=== PATIENT | male | born 1955 | race Caucasian/White ===

== ENCOUNTER 2017-01-18 10:39 | Outpatient (CLI) | payer OTHER | END 2017-01-18 23:59 | DX: R59.0 Localized enlarged lymph nodes (principal); K41.90 Unilateral femoral hernia, without obstruction or gangrene, not specified as recurrent ==

== ENCOUNTER 2017-01-23 10:40 | Outpatient (CLI) | payer OTHER | END 2017-01-23 10:41 | disposition home or self-care (01) | DX: R94.5 Abnormal results of liver function studies (principal) ==

== ENCOUNTER 2017-02-12 08:17 | Outpatient (CLI) | payer OTHER | END 2017-02-12 08:18 | disposition home or self-care (01) | DX: R19.03 Right lower quadrant abdominal swelling, mass and lump (principal) ==

== ENCOUNTER 2017-12-30 08:04 | Outpatient (CLI) | payer OTHER ==
[2017-12-30 13:00] LABS: BASOPHILS % (AUTO) 0.8 %; EOSINOPHILS # (AUTO) 0.2 10^3/uL (0.0-0.7); EOSINOPHILS % (AUTO) 5.5 %; HGB - HEMOGLOBIN 14.7 g/dL (14.0-18.0); LYMPHOCYTES # (AUTO) 1.2 10^3/uL (1.5-3.5); LYMPHOCYTES % (AUTO) 28.8 %; MEAN CORPUSCULAR HGB CONC 34.6 g/dL (32.0-36.0); MEAN CORPUSCULAR VOLUME 95.4 fL (80.0-94.0); MEAN PLATELET VOLUME 9.6 fL (7.4-11.4); MONOCYTES # (AUTO) 0.4 10^3/uL (0.0-1.0); NEUTROPHILS # (AUTO) 2.2 10^3/uL (1.5-6.6); NEUTROPHILS % (AUTO) 54.9 %; PLT - PLATELET COUNT 140 10^3/uL (130-450); RED BLOOD COUNT 4.44 10^6/uL (4.70-6.10); RED CELL DISTRIBUTION WIDTH 12.2 % (12.0-15.0); WHITE BLOOD COUNT 4.1 x10^3/uL (4.8-10.8)
[2017-12-30 13:18] LABS: ALBUMIN 4.3 g/dL (3.2-5.5); ALBUMIN/GLOBULIN RATIO 1.3 (1.0-2.2); ALKALINE PHOSPHATASE 58 IU/L (42-121); ALT ALANINE AMINOTRANSFERASE 71 IU/L (10-60); AST ASPARTATE AMINOTRANSFERASE 59 IU/L (10-42); BUN - BLOOD UREA NITROGEN 18 mg/dL (6-20); CALCIUM 9.2 mg/dL (8.5-10.3); CARBON DIOXIDE - CO2 25 mmol/L (21-32); CHLORIDE 101 mmol/L (101-111); CHOL/HDL RATIO 7.9 (<5.0); CHOLESTEROL 278 mg/dL; CREATININE 1.1 mg/dL (0.6-1.2); GFR - MDRD 68 (>89); GLUCOSE 131 mg/dL (70-100); HDL CHOLESTEROL 35 mg/dL; LDL CHOLESTEROL,CALCULATED 186 mg/dL; LDL/HDL RATIO 5.3 (<3.6); SODIUM 136 mmol/L (135-145); TOTAL PROTEIN 7.7 g/dL (6.7-8.2); VLDL CHOLESTEROL 57 mg/dL
== END 2017-12-30 08:05 | disposition home or self-care (01) ==
LOC: LAB.WCP 08:04
PROVIDERS: ATTEND Family Medicine
DX: Z00.00 Encounter for general adult medical examination without abnormal findings (principal); Z12.5 Encounter for screening for malignant neoplasm of prostate
CPT/HCPCS: 36415; 80053; 80061; 83721; 84153; 85025

== ENCOUNTER 2018-01-20 08:28 | Day surgery (SDC) | payer OTHER ==
[2018-01-20] MEDS ORDERED: LACTATED RINGERS 1,000 ML IV ONE (09:21)
[2018-01-20] MEDS ORDERED: PROPOFOL 200 MG/20 ML VIAL IVP ONE (10:00)
[2018-01-20] MEDS ORDERED: fentaNYL 100 MCG/2 ML VIAL IVP ONE (10:00)
[2018-01-20] MEDS ORDERED: MIDAZOLAM 2 MG/2 ML VIAL IVP ONE (10:00)
[2018-01-20 10:47] VITALS: BP 153/93
== END 2018-01-20 08:29 | disposition home or self-care (01) ==
LOC: SDS 08:28
PROVIDERS: ATTEND Surgery
PROC: 0DBN8ZX Excision of Sigmoid Colon, Via Natural or Artificial Opening Endoscopic, Diagnostic (ICD-10-PCS; 2018-01-20)
PROC: 0DBM8ZX Excision of Descending Colon, Via Natural or Artificial Opening Endoscopic, Diagnostic (ICD-10-PCS; 2018-01-20)
PROC: 0DBK8ZX Excision of Ascending Colon, Via Natural or Artificial Opening Endoscopic, Diagnostic (ICD-10-PCS; principal; 2018-01-20 09:36)
DX: Z12.11 Encounter for screening for malignant neoplasm of colon (principal); D12.2 Benign neoplasm of ascending colon; D12.4 Benign neoplasm of descending colon; D12.5 Benign neoplasm of sigmoid colon; K64.8 Other hemorrhoids; I10 Essential (primary) hypertension; Z79.82 Long term (current) use of aspirin
CPT/HCPCS: 45385; J7120

== ENCOUNTER 2018-11-11 11:36 | Emergency (ER) | payer OTHER ==
--- NOTE | 2018-11-11 12:07 | ED Physician Documentation ---
History of Present Illness - Stated complaint Stated Complaint: LEFT SIDE PX - Chief complaint Chief Complaint: Abd Pain - History obtained from History obtained from: Patient - History of Present Illness Timing: How many days ago (2) Pain level max: 6 Pain level now: 4 Severity Comments: Moderate Quality: Sharp Radiates to: LLQ Improved by: nothing Worsened by: nothing Review of Systems Ten Systems: 10 systems reviewed and negative Constitutional: reports: Reviewed and negative Eyes: reports: Reviewed and negative Ears: reports: Reviewed and negative Nose: reports: Reviewed and negative Throat: reports: Reviewed and negative Cardiac: reports: Reviewed and negative Respiratory: reports: Reviewed and negative GI: reports: Reviewed and negative : reports: Reviewed and negative Skin: reports: Reviewed and negative Musculoskeletal: reports: Reviewed and negative Neurologic: reports: Reviewed and negative Psychiatric: reports: Reviewed and negative Endocrine: reports: Reviewed and negative Immunocompromised: reports: Reviewed and negative PD PAST MEDICAL HISTORY - Past Medical History Cardiovascular: Hypertension Respiratory: None Endocrine/Autoimmune: None GI: None : None HEENT: None Psych: None Musculoskeletal: Rheumatoid arthritis Derm: None - Past Surgical History General: Colonoscopy Ortho: Shoulder arthroplasty, Arthroscopic surgery, Carpal Tunnel surgery, Spine surgery - Present Medications Home Medications: Ambulatory Orders Medication Instructions Recorded Confirmed Lisinopril 10 mg PO DAILY 01/20/18 01/20/18 Omeprazole 20 mg PO DAILY 01/20/18 01/20/18 - Allergies Allergies/Adverse Reactions: Allergies Allergy/AdvReac Type Severity Reaction Status Date / Time fluoxetine [From Prozac] Allergy Unknown Verified 11/11/18 11:51 simvastatin [From Zocor] Allergy Unknown Verified 11/11/18 11:51 - Living Situation Living Situation: reports: With family Living Arrangement: reports: At home - Social History Does the pt smoke?: No Does the pt drink ETOH?: Yes ETOH Use: Wine, Beer Does the pt have substance abuse?: No - Family History Family history: reports: Other (Reviewed and not pertinent) PD ED PE NORMAL - Vitals Vital signs reviewed: Yes - General General: Alert and oriented X 3, No acute distress - HEENT HEENT: PERRL - Neck Neck: Supple, no meningeal sign - Cardiac Cardiac: RRR, No murmur - Respiratory Respiratory: Clear bilaterally - Abdomen Abdomen: Normal bowel sounds, Soft, Non distended, Other (LLQ tenderness) - Male Male : Other (No testicular tenderness) - Derm Derm: Warm and dry - Extremities Extremities: No deformity - Neuro Neuro: Alert and oriented X 3 - Psych Psych: Normal mood, Normal affect Results - Vitals Vitals: Vital Signs - 24 hr 11/11/18 11/11/18 11:49 14:45 Temperature 36.9 C Heart Rate 79 71 Respiratory 16 12 Rate Blood Pressure 149/88 H 145/95 H O2 Saturation 99 98 Oxygen O2 Source Room air - Labs Labs: Laboratory Tests 11/11/18 11/11/18 11/11/18 12:45 12:45 12:45 WBC 5.4 RBC 4.38 L Hgb 14.6 Hct 42.4 MCV 96.7 H MCH 33.3 H MCHC 34.4 RDW 12.8 Plt Count 152 MPV 8.9 Neut # (Auto) 3.4 Lymph # (Auto) 1.2 L [place] # (Auto) 0.5 Eos # (Auto) 0.2 Baso # (Auto) 0.0 Absolute Nucleated RBC 0.00 Nucleated RBC % 0.0 Sodium 137 Potassium 3.7 Chloride 99 L Carbon Dioxide 28 Anion Gap 10.0 BUN 14 Creatinine 1.0 Estimated GFR (MDRD) 75 L Glucose 99 Calcium 9.4 Total Bilirubin 0.8 AST 57 H ALT 70 H Alkaline Phosphatase 64 Total Protein 8.6 H Albumin 4.7 Globulin 3.9 Albumin/Globulin Ratio 1.2 Lipase 44 Urine Color YELLOW Urine Clarity CLEAR Urine pH 5.5 Ur Specific [place] >=1.030 H Urine Protein NEGATIVE Urine Glucose (UA) NEGATIVE Urine Ketones NEGATIVE Urine Occult Blood NEGATIVE Urine Nitrite NEGATIVE Urine Bilirubin NEGATIVE Urine Urobilinogen 0.2 (NORMAL) Ur Leukocyte Esterase NEGATIVE Ur Microscopic Review NOT INDICATED Urine Culture Comments NOT INDICATED - Rads (name of study) CT Abd Pelvis w Contrast Radiology: Final report received (Diverticulosis, no acute cause of abdominal pain identified), EMP read indepedently PD MEDICAL DECISION MAKING - ED course Complexity details: reviewed old records, reviewed results, re-evaluated patient, considered differential, d/w patient ED course: 63-year-old male with left lower quadrant abdominal pain. Labs unremarkable. CT scan shows diverticulosis with no diverticulitis. We reviewed return precautions with patient. Discharged with Tylenol and ibuprofen for pain control. Departure - Departure Disposition: Home, Self Care Clinical Impression: Abdominal pain Qualifiers: Abdominal location: left lower quadrant Qualified Code(s): R10.32 - Left lower quadrant pain Condition: Good Instructions: Abdominal Pain Follow-Up: Stefanie Sahu MD [Primary Care Provider] - Comments: Follow up with PCP within 24 hours. Return with worsening symptoms. Take tylenol and ibuprofen as needed for pain. Discharge Date/Time: 11/11/18 15:13
[2018-11-11 13:01] LABS: BASOPHILS % (AUTO) 0.9 %; EOSINOPHILS # (AUTO) 0.2 10^3/uL (0.0-0.7); EOSINOPHILS % (AUTO) 3.7 %; HGB - HEMOGLOBIN 14.6 g/dL (14.0-18.0); LYMPHOCYTES # (AUTO) 1.2 10^3/uL (1.5-3.5); LYMPHOCYTES % (AUTO) 21.9 %; MEAN CORPUSCULAR HEMOGLOBIN 33.3 pg (27.0-31.0); MEAN CORPUSCULAR HGB CONC 34.4 g/dL (32.0-36.0); MEAN CORPUSCULAR VOLUME 96.7 fL (80.0-94.0); MEAN PLATELET VOLUME 8.9 fL (7.4-11.4); MONOCYTES # (AUTO) 0.5 10^3/uL (0.0-1.0); MONOCYTES % (AUTO) 9.2 %; NEUTROPHILS # (AUTO) 3.4 10^3/uL (1.5-6.6); NEUTROPHILS % (AUTO) 64.3 %; PLT - PLATELET COUNT 152 10^3/uL (130-450); RED BLOOD COUNT 4.38 10^6/uL (4.70-6.10); RED CELL DISTRIBUTION WIDTH 12.8 % (12.0-15.0); WHITE BLOOD COUNT 5.4 x10^3/uL (4.8-10.8)
[2018-11-11 13:02] LABS: BILIRUBIN,URINE NEGATIVE (NEGATIVE); GLUCOSE, URINE (UA) NEGATIVE (NEGATIVE); KETONES,URINE (UA) NEGATIVE (NEGATIVE); LEUKOCYTE ESTERASE, URINE NEGATIVE (NEGATIVE); NITRITE,URINE NEGATIVE (NEGATIVE); OCCULT BLOOD,URINE NEGATIVE (NEGATIVE); PH,URINE 5.5 PH (5.0-7.5); PROTEIN,URINE NEGATIVE (NEGATIVE); UROBILINOGEN,URINE 0.2 (NORMAL) E.U./dL (NORMAL)
[2018-11-11] MEDS ORDERED: IOVERSOL 320 100 ML VIAL IVP ONE ×2 (13:09→13:53)
[2018-11-11 13:13] LABS: ALBUMIN 4.7 g/dL (3.2-5.5); ALBUMIN/GLOBULIN RATIO 1.2 (1.0-2.2); BILIRUBIN,TOTAL 0.8 mg/dL (0.2-1.0); CALCIUM 9.4 mg/dL (8.5-10.3); TOTAL PROTEIN 8.6 g/dL (6.7-8.2)
[2018-11-11 13:59] LABS: CLARITY,URINE CLEAR (CLEAR)
--- NOTE | 2018-11-11 14:20 | CT Report ---
Reason: LLQ abd pain Procedure Date: 11/11/2018 Accession Number: [id number] / [id number] Procedure: CT - Abdomen/Pelvis W/ CPT Code: FULL RESULT: EXAM: CT ABDOMEN AND PELVIS EXAM DATE: 11/11/2018 01:26 PM. CLINICAL HISTORY: Left lower quadrant abdominal pain. COMPARISONS: CT from 09/18/2006. TECHNIQUE: Routine helical CT imaging was performed through the abdomen and pelvis. IV contrast: 90 mL [id number]. Enteric contrast: No. Reconstructions: Coronal and sagittal. In accordance with CT protocol optimization, one or more of the following dose reduction techniques were utilized for this exam: automated exposure control, adjustment of mA and/or KV based on patient size, or use of iterative reconstructive technique. FINDINGS: Lung Bases: Basilar scar/atelectasis. Heart size upper normal. Mediastinal and paraesophageal calcified lymph nodes are seen. Liver: Fatty liver. Patent portal vein. Gallbladder/Bile Ducts: Mildly contracted gallbladder. No pericholecystic edema. No biliary ductal dilatation. Spleen: Normal. Pancreas: Normal. Adrenal Glands: Normal. Kidneys: Kidneys enhance symmetrically. No hydronephrosis. No nephrolithiasis. No ureteral dilatation or ureteral calculi. Peritoneal Cavity/Bowel: Stomach is nondistended. Perigastric vessels are noted. No small bowel wall thickening or evidence for obstruction. Small volume of stool in the colon. Diverticula are seen in the colon. No evidence for diverticulitis. The appendix is well visualized and normal. Pelvic Organs: Urinary bladder, prostate gland and seminal vesicles are unremarkable. Bilateral fatty inguinal hernias. No pelvic adenopathy. Vasculature: Atheromatous plaque. No aneurysm. Bones: Degenerative change lower thoracic and lumbar spine. Degenerative changes of both hip joints. No acute osseous abnormalities. Other: None. IMPRESSION: 1. Normal appendix. 2. Distal colonic diverticulosis. No diverticulitis. No bowel obstruction. 3. No nephrolithiasis. No hydronephrosis. 4. Fatty liver. 5. Mildly contracted gallbladder. No biliary ductal dilatation. RADIA
[2018-11-11 14:45] VITALS: BP 145/95
== END 2018-11-11 15:13 | disposition home or self-care (01) ==
LOC: ED 11:36
DX: R10.32 Left lower quadrant pain (principal); K57.90 Diverticulosis of intestine, part unspecified, without perforation or abscess without bleeding; I10 Essential (primary) hypertension
CPT/HCPCS: 36415; 74177; 80053; 81003; 83690; 85025; 99283; Q9967; 81001; 87086

== ENCOUNTER 2019-03-03 07:12 | Outpatient (CLI) | payer OTHER ==
--- NOTE | 2019-03-03 15:13 | MRI Report ---
Reason: SHOULDER IMPINGEMENT SYNDROME,RIGHT Procedure Date: 03/03/2019 Accession Number: [id number] / [id number] Procedure: MRI - Shoulder RT W/O CPT Code: FULL RESULT: EXAM: RIGHT SHOULDER MRI WITHOUT CONTRAST EXAM DATE: 03/03/2019 08:10 AM. CLINICAL HISTORY: Right shoulder pain and limited range of motion. COMPARISON: None. TECHNIQUE: Multiplanar, multisequence T1-weighted and fluid-sensitive sequences of the shoulder without contrast. Other: None. FINDINGS: Acromioclavicular Region: The acromion is type I. Marginal osteophytes, cortical irregularity, and subcortical cysts at the acromioclavicular joint. Small well corticated bone fragment adjacent to the posterior aspect of the distal end of the clavicle which may represent an old ununited fracture or accessory ossicle. The inferior surface of the acromioclavicular joint indents the bursal surface of the supraspinatus muscle tendon unit. The coracoacromial and coracoclavicular ligaments are intact. No subacromial/subdeltoid bursal fluid. Glenohumeral Region: No subluxation. No effusion or loose bodies. The articular cartilage is unremarkable. The glenohumeral ligaments and joint capsule are unremarkable. Bone Marrow: No fracture, marrow edema or bone lesions. Small marginal osteophytes at the glenoid. Labrum: There is a probable sub-labral foramen variant at the anterosuperior aspect of the labrum. Otherwise, the labrum is unremarkable on this nonarthrographic exam. Musculature/Rotator Cuff: There is supraspinatus and infraspinatus tendinosis. Teres minor tendon is unremarkable. Tiny ganglion within the superior aspect of the subscapularis tendon. No edema or fatty atrophy. Biceps Tendon: The long head of the biceps tendon and biceps rodriguez are intact. There is an approximately 1.4 x 0.8 x 0.6 cm ganglion adjacent to the medial proximal aspect of the long head biceps tendon and the lesser tuberosity. A portion of the cyst extends into the lesser tuberosity. Other: The subcutaneous tissues are unremarkable. IMPRESSION: 1. Severe acromioclavicular joint osteoarthritis. The inferior surface of the acromioclavicular joint indents the bursal surface of the supraspinatus muscle tendon unit. 2. Supraspinatus and infraspinatus tendinosis. Tiny ganglion within the subscapularis tendon. 3. A small 1.4 x 0.8 x 0.6 cm ganglion adjacent to the proximal aspect of the long head biceps tendon in the lesser tuberosity. A portion of the cyst extends into the lesser tuberosity. RADIA
== END 2019-03-03 07:13 | disposition home or self-care (01) ==
LOC: DI 07:12
PROVIDERS: ATTEND Physician Assistant
DX: M19.011 Primary osteoarthritis, right shoulder (principal); M67.411 Ganglion, right shoulder; M67.911 Unspecified disorder of synovium and tendon, right shoulder

== ENCOUNTER 2020-02-01 08:00 | Outpatient (CLI) | payer OTHER ==
[2020-02-01 16:32] LABS: BASOPHILS % (AUTO) 0.5 %; EOSINOPHILS # (AUTO) 0.2 10^3/uL (0.0-0.7); EOSINOPHILS % (AUTO) 3.1 %; HGB - HEMOGLOBIN 14.5 g/dL (14.0-18.0); LYMPHOCYTES # (AUTO) 1.4 10^3/uL (1.5-3.5); LYMPHOCYTES % (AUTO) 24.4 %; MEAN CORPUSCULAR HEMOGLOBIN 32.5 pg (27.0-31.0); MEAN CORPUSCULAR HGB CONC 33.3 g/dL (32.0-36.0); MEAN CORPUSCULAR VOLUME 97.5 fL (80.0-94.0); MEAN PLATELET VOLUME 11.4 fL (7.4-11.4); MONOCYTES # (AUTO) 0.9 10^3/uL (0.0-1.0); MONOCYTES % (AUTO) 15.7 %; NEUTROPHILS # (AUTO) 3.1 10^3/uL (1.5-6.6); NEUTROPHILS % (AUTO) 55.8 %; PLT - PLATELET COUNT 232 10^3/uL (130-450); RED BLOOD COUNT 4.46 10^6/uL (4.70-6.10); RED CELL DISTRIBUTION WIDTH 11.9 % (12.0-15.0); WHITE BLOOD COUNT 5.5 x10^3/uL (4.8-10.8)
[2020-02-01 16:49] LABS: ALBUMIN 4.3 g/dL (3.2-5.5); ALKALINE PHOSPHATASE 72 IU/L (42-121); ALT ALANINE AMINOTRANSFERASE 138 IU/L (10-60); AST ASPARTATE AMINOTRANSFERASE 123 IU/L (10-42); BILIRUBIN,TOTAL 0.8 mg/dL (0.2-1.0); BUN - BLOOD UREA NITROGEN 51 mg/dL (6-20); CALCIUM 9.1 mg/dL (8.5-10.3); CARBON DIOXIDE - CO2 21 mmol/L (21-32); CHLORIDE 103 mmol/L (101-111); CHOL/HDL RATIO 5.6 (<5.0); CHOLESTEROL 167 mg/dL; GLUCOSE 87 mg/dL (70-100); HDL CHOLESTEROL 30 mg/dL; LDL CHOLESTEROL,CALCULATED 104 mg/dL; LDL/HDL RATIO 3.5 (<3.6); SODIUM 133 mmol/L (135-145); TOTAL PROTEIN 8.5 g/dL (6.7-8.2); VLDL CHOLESTEROL 33 mg/dL
== END 2020-02-01 23:59 | disposition home or self-care (01) ==
LOC: LAB.WCP 08:00
PROVIDERS: ATTEND Family Medicine
DX: I10 Essential (primary) hypertension (principal); R94.5 Abnormal results of liver function studies; E78.5 Hyperlipidemia, unspecified; Z12.5 Encounter for screening for malignant neoplasm of prostate
CPT/HCPCS: 36415; 80053; 80061; 83721; 84153; 84443; 85025

== ENCOUNTER 2020-02-25 08:00 | Outpatient (CLI) | payer OTHER ==
[2020-02-25 18:36] LABS: CREATININE 1.5 mg/dL (0.6-1.2)
== END 2020-02-25 23:59 | disposition home or self-care (01) ==
LOC: LAB.WCP 08:00
PROVIDERS: ATTEND Family Medicine
DX: N17.9 Acute kidney failure, unspecified (principal)
CPT/HCPCS: 36415; 80048

== ENCOUNTER 2020-02-25 14:18 | Outpatient (CLI) | payer OTHER ==
--- NOTE | 2020-02-25 22:23 | XRAY Report ---
Reason: ARTHRITIS FOOT/ANKLE Procedure Date: 02/25/2020 Accession Number: [id number] / [id number] Procedure: WCP - Foot 3 View RT CPT Code: Final Report FULL RESULT: EXAM: RIGHT FOOT RADIOGRAPHY EXAM DATE: 02/25/2020 02:18 PM. CLINICAL HISTORY: ARTHRITIS FOOT/ANKLE. Right foot pain for 1 month. History of gout. COMPARISON: None. TECHNIQUE: 3 views. FINDINGS: Bones: No fractures. No erosions. Joints: Mild joint space narrowing of the first metatarsal phalangeal joint with some lateral osteophytosis. Subtle amorphous calcific density adjacent to the joint, medially. Soft Tissues: No soft tissue swelling. Mild vascular calcifications. IMPRESSION: Arthropathy at the first metatarsophalangeal joint, and there are some subtle periarticular calcifications medially that could be tophi related to gout. No erosions. RADIA
== END 2020-02-25 23:59 | disposition home or self-care (01) ==
LOC: DI.WCP 14:18
PROVIDERS: ATTEND Family Medicine
DX: M19.071 Primary osteoarthritis, right ankle and foot (principal); N17.9 Acute kidney failure, unspecified
CPT/HCPCS: 36415; 80048

== ENCOUNTER 2020-03-03 06:29 | Emergency (ER) | payer OTHER ==
[2020-03-03] MEDS ORDERED: DEXAMETHASONE 10 MG/ML VIAL PO STA (08:02)
[2020-03-03] MEDS ORDERED: KETOROLAC 60 MG/2 ML VIAL IM STA (08:02)
[2020-03-03] MEDS ORDERED: CHERRY SYRUP 10 ML UDC PO ONE (08:02)
--- NOTE | 2020-03-03 08:05 | ED Physician Documentation ---
History of Present Illness - Stated complaint Stated Complaint: R LEG PAIN - Chief complaint Chief Complaint: Ext Problem - History obtained from History obtained from: Patient - History of Present Illness Timing: How many weeks ago (4) - Additonal information Additional information: 64-year-old male with a history of gout is developed pain in his foot and his knee that is been vexing him for about 1 month. He did not get the usual relief that he gets from taking some medication he has at home and he has gone into see his primary care doctor was taken off of anti-inflammatories because of kidney injury and he has been back into see the primary and Dr. Blackwood as prescribed some tramadol as well as another medication and he states this is not helped. He is spent the entire night up unable to sleep he has been using a cane and now is beginning developed some pain in his left knee he thinks associated with compensation Review of Systems Constitutional: denies: Fever Eyes: denies: Decreased vision Ears: denies: Ear pain Nose: denies: Congestion Throat: denies: Sore throat Respiratory: denies: Dyspnea, Cough GI: denies: Vomiting PD PAST MEDICAL HISTORY - Past Medical History Past Medical History: Yes Cardiovascular: Hypertension Respiratory: None Neuro: None Endocrine/Autoimmune: None GI: None : None HEENT: None Psych: None Musculoskeletal: Rheumatoid arthritis Derm: None - Past Surgical History Past Surgical History: Yes General: Colonoscopy Ortho: Shoulder arthroplasty, Arthroscopic surgery, Carpal Tunnel surgery, Spine surgery - Present Medications Home Medications: Ambulatory Orders Medication Instructions Recorded Confirmed Omeprazole 20 mg PO DAILY 01/20/18 01/20/18 lisinopriL [Lisinopril] 10 mg PO DAILY 01/20/18 01/20/18 Hydrocodone/Acetaminophen 1 - 2 each PO Q6H PRN #14 tablet 03/03/20 [Hydrocodon-Acetaminophen 5-325] - Allergies Allergies/Adverse Reactions: Allergies Allergy/AdvReac Type Severity Reaction Status Date / Time fluoxetine [From Prozac] Allergy Unknown Verified 11/11/18 11:51 simvastatin [From Zocor] Allergy Unknown Verified 11/11/18 11:51 - Social History Does the pt smoke?: No Smoking Status: Never smoker Does the pt drink ETOH?: Yes Does the pt have substance abuse?: No - Immunizations Immunizations are current?: Yes - POLST Patient has POLST: No PD ED PE NORMAL - Vitals Vital signs reviewed: Yes (Wide pulse pressure) - General General: Alert and oriented X 3, Well developed/nourished, Other (Appears to be in pain with urgent care physician assistant tone and flattened affect) - HEENT HEENT: Atraumatic, PERRL, EOMI - Respiratory Respiratory: No respiratory distress - Derm Derm: Normal color, Warm and dry, No rash - Extremities Extremities: No deformity, No edema, No calf tenderness / cord, Other (There is tenderness to the anterior dorsal foot but the pain is not exquisite to minor movement. There is no significant swelling no erythema no lymphangitic streaking there is no swelling to the ankle or to the knee. Ligaments to the knee are stable.) - Neuro Neuro: Alert and oriented X 3, human resources partner 2-12 intact, No motor deficit, No sensory deficit, Normal speech Eye Opening: Spontaneous Motor: Obeys Commands Verbal: Oriented GCS Score: 15 - Psych Psych: Normal mood Results - Vitals Vitals: Vital Signs - 24 hr 03/03/20 03/03/20 06:44 09:13 Temperature 36.5 C Heart Rate 88 81 Respiratory 16 16 Rate Blood Pressure 113/52 L 118/68 O2 Saturation 96 98 Oxygen O2 Source Room air - Labs Labs: Laboratory Tests 03/03/20 03/03/20 08:17 08:17 WBC 9.1 RBC 3.70 L Hgb 12.0 L Hct 35.8 L MCV 96.8 H MCH 32.4 H MCHC 33.5 RDW 11.5 L Plt Count 165 MPV 9.9 Neut # (Auto) 7.2 H Lymph # (Auto) 1.0 L [place] # (Auto) 0.8 Eos # (Auto) 0.0 Baso # (Auto) 0.0 Absolute Nucleated RBC 0.00 Nucleated RBC % 0.0 Sodium 135 Potassium 3.9 Chloride 99 L Carbon Dioxide 24 Anion Gap 12.0 BUN 18 Creatinine 1.3 H Estimated GFR (MDRD) 56 L Glucose 111 H Calcium 9.2 Total Bilirubin 1.1 H AST 27 ALT 43 Alkaline Phosphatase 61 Total Protein 7.5 Albumin 4.0 Globulin 3.5 Albumin/Globulin Ratio 1.1 Lipase 41 - Rads (name of study) knee Radiology: Prelim report reviewed (Impression: 1. Mild tricompartmental osteoarthritis.: 2 Chondrocalcinosis. 3 Trace knee effusion. 4 No acute bony abnormality.), EMP read indepedently, See rad report PD MEDICAL DECISION MAKING - ED course Complexity details: reviewed old records, reviewed results, re-evaluated patient, considered differential, d/w patient ED course: 64 y/o male with arthritic pain that is non-relenting and not amenable to tramadol appears to have osteo-arthritis and I cannot make a case for gout based no physical exam. He is administered tordal and decadron and we have provided a script for a limited amount of hydrocodone Departure - Departure Disposition: 01 Home, Self Care Clinical Impression: Osteoarthritis Qualifiers: Osteoarthritis location: knee Osteoarthritis type: unspecified Laterality: right Qualified Code(s): M17.11 - Unilateral primary osteoarthritis, right knee Condition: Stable Instructions: ED Degenerative Joint Disease Follow-Up: Stefanie Sahu DO [Primary Care Provider] - Prescriptions: Hydrocodone/Acetaminophen [Hydrocodon-Acetaminophen 5-325] 1 - 2 each PO Q6H PRN #14 tablet PRN Reason: pain Discharge Date/Time: 03/03/20 09:16
[2020-03-03 08:22] LABS: BASOPHILS % (AUTO) 0.3 %; EOSINOPHILS % (AUTO) 0.3 %; LYMPHOCYTES % (AUTO) 10.5 %; MEAN CORPUSCULAR HEMOGLOBIN 32.4 pg (27.0-31.0); MEAN CORPUSCULAR HGB CONC 33.5 g/dL (32.0-36.0); MEAN CORPUSCULAR VOLUME 96.8 fL (80.0-94.0); MEAN PLATELET VOLUME 9.9 fL (7.4-11.4); MONOCYTES # (AUTO) 0.8 10^3/uL (0.0-1.0); NEUTROPHILS # (AUTO) 7.2 10^3/uL (1.5-6.6); NEUTROPHILS % (AUTO) 79.3 %; PLT - PLATELET COUNT 165 10^3/uL (130-450); RED CELL DISTRIBUTION WIDTH 11.5 % (12.0-15.0); WHITE BLOOD COUNT 9.1 x10^3/uL (4.8-10.8)
--- NOTE | 2020-03-03 08:25 | XRAY Report ---
Reason: pain X 1 month cant bear weight Procedure Date: 03/03/2020 Accession Number: [id number] / [id number] Procedure: XR - Knee 4 View RT CPT Code: Final Report FULL RESULT: EXAM: RIGHT KNEE RADIOGRAPHY EXAM DATE: 03/03/2020 08:16 AM. CLINICAL HISTORY: Right knee pain x1 month. No known injury. Unable to bear weight. COMPARISON: None. TECHNIQUE: 4 views. FINDINGS: Bones: Multipartite suprapatellar spur. Small corticated osseous density adjacent to the fibular head representing an unfused ossicle versus forming enthesophyte. No fracture or bone lesion. Joints: Normal alignment. Mild tricompartmental osteophytosis. Joint spaces are maintained. Chondrocalcinosis in the medial and lateral compartments. A trace suprapatellar effusion is present. Soft Tissues: Vascular calcifications in the lower leg. IMPRESSION: 1. Mild tricompartmental osteoarthritis. 2. Chondrocalcinosis. 3. Trace knee effusion. 4. No acute bony abnormality. RADIA
[2020-03-03 08:34] LABS: ALBUMIN/GLOBULIN RATIO 1.1 (1.0-2.2); BILIRUBIN,TOTAL 1.1 mg/dL (0.2-1.0); CALCIUM 9.2 mg/dL (8.5-10.3); CREATININE 1.3 mg/dL (0.6-1.2); TOTAL PROTEIN 7.5 g/dL (6.7-8.2)
[2020-03-03 09:14] VITALS: BP 118/68
== END 2020-03-03 09:16 | disposition home or self-care (01) ==
LOC: ED 06:29
DX: M17.11 Unilateral primary osteoarthritis, right knee (principal); I10 Essential (primary) hypertension
CPT/HCPCS: 36415; 73564; 80053; 83690; 85025; 96372; 99283; 99284; A9270

== ENCOUNTER 2020-05-31 08:00 | Outpatient (CLI) | payer OTHER ==
[2020-05-31 18:07] LABS: HGB - HEMOGLOBIN 13.2 g/dL (14.0-18.0); MEAN CORPUSCULAR HGB CONC 32.4 g/dL (32.0-36.0); MEAN PLATELET VOLUME 10.1 fL (7.4-11.4); RED BLOOD COUNT 4.12 10^6/uL (4.70-6.10); RED CELL DISTRIBUTION WIDTH 11.7 % (12.0-15.0); WHITE BLOOD COUNT 6.7 x10^3/uL (4.8-10.8)
[2020-05-31 19:12] LABS: CRP - C-REACTIVE PROTEIN 2.8 mg/dL (0-1.0); URIC ACID 8.3 mg/dL (2.6-7.2)
[2020-05-31 19:27] LABS: RHEUMATOID FACTOR NEGATIVE (Negative)
[2020-06-02 15:31] LABS: ANA SCREEN NEGATIVE (NEGATIVE)
[2020-06-02 15:48] LABS: DNA (DS) ANTIBODY 2 IU/mL
[2020-06-02 20:38] LABS: CYCLIC CITRULL PEPTIDE CCP IGG <16 UNITS
== END 2020-05-31 23:59 | disposition home or self-care (01) ==
LOC: LAB.WCP 08:00
PROVIDERS: ATTEND Nurse Practitioner Family
DX: M25.50 Pain in unspecified joint (principal)
CPT/HCPCS: 36415; 84550; 85027; 85651; 86038; 86140; 86200; 86225; 86430

== ENCOUNTER 2020-06-02 12:10 | Outpatient (CLI) | payer OTHER ==
[2020-06-02 18:45] LABS: ABSOLUTE RETICS # AUTO 0.031 10^6/uL (0.020-0.110); RED BLOOD COUNT 4.02 10^6/uL (4.70-6.10)
[2020-06-02 19:19] LABS: FERRITIN 522.5 ng/mL (23.9-336.2)
[2020-06-02 19:21] LABS: ALBUMIN 3.9 g/dL (3.2-5.5); ALBUMIN/GLOBULIN RATIO 0.9 (1.0-2.2); BILIRUBIN,TOTAL 0.2 mg/dL (0.2-1.0); CALCIUM 9.8 mg/dL (8.5-10.3); CREATININE 1.3 mg/dL (0.6-1.2); TOTAL PROTEIN 8.3 g/dL (6.7-8.2)
== END 2020-06-02 23:59 | disposition home or self-care (01) ==
LOC: LAB.WCP 12:10
PROVIDERS: ATTEND Nurse Practitioner Family
DX: R79.82 Elevated C-reactive protein (CRP) (principal); R70.0 Elevated erythrocyte sedimentation rate; D64.9 Anemia, unspecified
CPT/HCPCS: 36415; 80053; 82607; 82728; 82746; 83540; 84466; 85045

== ENCOUNTER 2020-06-21 09:40 | Outpatient (CLI) | payer OTHER ==
[2020-06-21 12:00] LABS: CRP - C-REACTIVE PROTEIN < 1.0 mg/dL (0-1.0)
[2020-06-21 12:09] LABS: URIC ACID 8.2 mg/dL (2.6-7.2)
== END 2020-06-21 23:59 | disposition home or self-care (01) ==
LOC: LAB.WCP 09:40
PROVIDERS: ATTEND Family Medicine
DX: M10.00 Idiopathic gout, unspecified site (principal); R70.0 Elevated erythrocyte sedimentation rate
CPT/HCPCS: 36415; 84550; 85651; 86140

== ENCOUNTER 2020-07-13 09:45 | Outpatient (CLI) | payer OTHER ==
--- NOTE | 2020-07-13 17:22 | MRI Report ---
PROCEDURE: Shoulder RT W/O INDICATIONS: RT SHLDR PAIN TECHNIQUE: Noncontrast oblique coronal T2 fast spin echo with fat saturation, oblique sagittal T1 spin echo and T2 fast spin echo with fat saturation, axial T1 spin echo and T2 fast spin echo with fat saturation t hrough the shoulder. COMPARISON: MR shoulder 03/03/2019. FINDINGS: Image quality: There is motion artifact limiting evaluation. Rotator cuff: There is mild tendinopathy of the supraspinatus and infraspinatus without a discrete t ear. The subscapularis also demonstrates mild tendinopathy but appears intact. The teres minor also a ppears intact. No rotator cuff muscle atrophy on sagittal images. Bones and bursae: No bone marrow contusions or fractures. There are postsurgical changes consistent with prior acromioplasty with a small amount of fluid and mild edema in the region of the acromioclav icular joint. A small amount of subacromial/subdeltoid bursa fluid is demonstrated. Capsule and soft tissues: There is degenerative tearing of the posterosuperior labrum. In the absenc e of intra-articular contrast, the glenohumeral ligaments appear intact. The long head of the biceps tendon demonstrates normal location and morphology. The rotator interval appears normal, without fi brosis. The coracohumeral ligament is normal in thickness. IMPRESSION: 1. Mild tendinopathy of the supraspinatus, infraspinatus, and subscapularis without a discrete tear. 2. Postsurgical changes consistent with prior acromioplasty with a small amount of fluid and mild job ma in the region of the acromioclavicular joint. Small amount of subacromial/subdeltoid bursal fluid demonstrated. 3. Degenerative tearing of the posterosuperior labrum. Reviewed by: Jorge Wang MD on 07/13/2020 5:21 PM PDT Approved by: Jorge Wang MD on 07/13/2020 5:21 PM PDT Station ID: [id number]
== END 2020-07-13 09:46 | disposition home or self-care (01) ==
LOC: DI 09:45
PROVIDERS: ATTEND Family Medicine
DX: M75.81 Other shoulder lesions, right shoulder (principal); M25.411 Effusion, right shoulder

== ENCOUNTER 2020-09-21 08:00 | Outpatient (CLI) | payer OTHER | END 2020-09-21 23:59 | disposition home or self-care (01) | LOC: LAB.WCP 08:00 | PROVIDERS: ATTEND Internal Medicine Rheumatology | DX: M10.9 Gout, unspecified (principal) | CPT/HCPCS: 36415; 84550 ==

== ENCOUNTER 2020-11-26 13:57 | Emergency (ER) | payer MEDICARE, OTHER ==
[2020-11-26] MEDS ORDERED: KETOROLAC 30 MG/ML VIAL IM STA (14:58)
[2020-11-26] MEDS ORDERED: DEXAMETHASONE 10 MG/ML VIAL IM STA (15:32)
--- NOTE | 2020-11-26 15:33 | ED Physician Documentation ---
History of Present Illness - Stated complaint Stated Complaint: BILAT KNEE/FOOT PX - Chief complaint Chief Complaint: Heent - History obtained from History obtained from: Patient - Additonal information Additional information: 65-year-old man with past medical history of gout presents with bilateral foot and knee pain progressive over the past month, worsening today. Patient states that he has severe pain with ambulation. Aching constant radiating up the leg associated with mild swelling, worse with range of motion.Denies fevers or injury. Review of Systems Constitutional: denies: Fever Skin: denies: Rash Musculoskeletal: reports: Extremity pain, Joint pain PD PAST MEDICAL HISTORY - Past Medical History Past Medical History: Yes Cardiovascular: Hypertension Respiratory: None Neuro: None Endocrine/Autoimmune: None GI: None : None HEENT: None Psych: None Musculoskeletal: Rheumatoid arthritis Derm: None - Past Surgical History Past Surgical History: Yes General: Colonoscopy Ortho: Shoulder arthroplasty, Arthroscopic surgery, Carpal Tunnel surgery, Spine surgery - Present Medications Home Medications: Ambulatory Orders Medication Instructions Recorded Confirmed Omeprazole 20 mg PO DAILY 01/20/18 01/20/18 lisinopriL [Lisinopril] 10 mg PO DAILY 01/20/18 01/20/18 Hydrocodone/Acetaminophen 1 - 2 each PO Q6H PRN #14 tablet 03/03/20 [Hydrocodon-Acetaminophen 5-325] predniSONE [Prednisone 21-TAB dose 20 mg PO QDAC #21 tab.ds.pk 11/26/20 pack] - Allergies Allergies/Adverse Reactions: Allergies Allergy/AdvReac Type Severity Reaction Status Date / Time fluoxetine [From Prozac] Allergy Unknown Verified 11/26/20 14:03 simvastatin [From Zocor] Allergy Unknown Verified 11/26/20 14:03 - Social History Does the pt smoke?: No Smoking Status: Never smoker Does the pt drink ETOH?: Yes Does the pt have substance abuse?: No - Immunizations Immunizations are current?: Yes - POLST Patient has POLST: No Results - Vitals Vitals: Vital Signs - 24 hr 11/26/20 14:03 Temperature 36.3 C L Heart Rate 118 H Respiratory 20 Rate Blood Pressure 115/66 O2 Saturation 100 Oxygen O2 Source Room air PD MEDICAL DECISION MAKING - ED course ED course: 55-year-old man with history of gout presents with gout flare. Toradol and Decadron given. return precautions given. f/u with pcp/call center professional. Departure - Departure Disposition: 01 Home, Self Care Clinical Impression: Gout flare Condition: Stable Instructions: Gout Attack Tx Prescriptions: predniSONE [Prednisone 21-TAB dose pack] 20 mg PO QDAC #21 tab.ds.pk Comments: You were seen in the emergency department for a gout flare. We gave you a steroid injection and a strong anti-inflammatory shot. Take this prednisone taper as prescribed and follow-up with your call center professional. Return for any new or worsening symptoms or other concerns.
[2020-11-26 15:48] VITALS: BP 126/62
== END 2020-11-26 15:49 | disposition home or self-care (01) ==
LOC: ED 13:57
DX: M10.072 Idiopathic gout, left ankle and foot (principal); M10.071 Idiopathic gout, right ankle and foot; M10.062 Idiopathic gout, left knee; M10.061 Idiopathic gout, right knee; M06.9 Rheumatoid arthritis, unspecified; I10 Essential (primary) hypertension
CPT/HCPCS: 96372; 99283; 99284

== ENCOUNTER 2020-12-31 12:27 | Emergency (ER) | payer OTHER ==
[2020-12-31] MEDS ORDERED: HYDROmorphone 1 MG/ML CARPUJECT IVP STA ×2 (12:45→14:49)
[2020-12-31] MEDS ORDERED: LIDOCAINE 1%-EPI 1:100000 20 ML MDV SUBQ STA (12:45)
[2020-12-31] MEDS ORDERED: KETOROLAC 30 MG/ML VIAL IVP STA (12:45)
[2020-12-31] MEDS ORDERED: DEXAMETHASONE 10 MG/ML VIAL IVP STA (12:45)
--- NOTE | 2020-12-31 12:47 | ED Physician Documentation ---
History of Present Illness - Stated complaint Stated Complaint: unable to walk - Chief complaint Chief Complaint: General - History obtained from History obtained from: Patient - Additonal information Additional information: 65-year-old gentleman with history of hypercholesterolemia, hypertension, gout presents with what he believes is a flare of gout in the right wrist, both knees, both ankles, has been going on for 4 days. He has not tried anything at home for it. Now it is at the point where the pain makes him nonfunctional and he is worried that he basically cannot walk and might fall. He denies fevers. Review of Systems Constitutional: denies: Fever, Chills Nose: denies: Rhinorrhea / runny nose, Congestion Cardiac: denies: Chest pain / pressure, Palpitations Respiratory: denies: Dyspnea, Cough PD PAST MEDICAL HISTORY - Past Medical History Cardiovascular: Hypertension Respiratory: None Neuro: None Endocrine/Autoimmune: None GI: None : None HEENT: None Psych: None Musculoskeletal: Rheumatoid arthritis Derm: None - Past Surgical History Past Surgical History: Yes General: Colonoscopy Ortho: Shoulder arthroplasty, Arthroscopic surgery, Carpal Tunnel surgery, Spine surgery - Present Medications Home Medications: Ambulatory Orders Medication Instructions Recorded Confirmed Omeprazole 20 mg PO DAILY 01/20/18 01/20/18 lisinopriL [Lisinopril] 10 mg PO DAILY 01/20/18 01/20/18 Hydrocodone/Acetaminophen 1 - 2 each PO Q6H PRN #14 tablet 03/03/20 [Hydrocodon-Acetaminophen 5-325] predniSONE [Prednisone 21-TAB dose 20 mg PO QDAC #21 tab.ds.pk 11/26/20 pack] Atorvastatin [Lipitor] 12/31/20 Oxycodone HCl/Acetaminophen 1 - 2 each PO Q6H PRN #14 tablet 12/31/20 [Percocet 5-325 mg Tablet] allopurinoL [Zyloprim] 12/31/20 cephALEXin [Keflex] 500 mg PO Q6H #28 cap 12/31/20 predniSONE [Deltasone] 20 mg PO [id number] #21 tab 12/31/20 - Allergies Allergies/Adverse Reactions: Allergies Allergy/AdvReac Type Severity Reaction Status Date / Time fluoxetine [From Prozac] Allergy Unknown Verified 12/31/20 12:35 simvastatin [From Zocor] Allergy Unknown Verified 12/31/20 12:35 - Social History Does the pt smoke?: No Smoking Status: Never smoker Does the pt drink ETOH?: Yes Does the pt have substance abuse?: No - Immunizations Immunizations are current?: Yes - POLST Patient has POLST: No PD ED PE NORMAL - Vitals Vital signs reviewed: Yes - General General: Other (On initial evaluation he is sitting in a wheelchair, he appears mildly depressed.) - HEENT HEENT: PERRL, EOMI - Neck Neck: Supple, no meningeal sign, No bony TTP - Cardiac Cardiac: RRR, No murmur - Respiratory Respiratory: No respiratory distress, Clear bilaterally - Abdomen Abdomen: Normal bowel sounds, Soft, Non tender - Back Back: No CVA TTP, No spinal TTP - Extremities Extremities: Other (He has a small effusion of the right knee, a moderate to large effusion of the left knee. Painless passive range of motion of both the minimal warmth. Quite tender to the right ankle, less so to the left ankle. Tender to the dorsal right wrist with limited range of motion there due to pain.) - Neuro Neuro: Alert and oriented X 3, Normal speech Results - Vitals Vitals: Vital Signs - 24 hr 12/31/20 12/31/20 12/31/20 12:32 13:18 13:54 Temperature 36.8 C 37.5 C 36.8 C Heart Rate 121 H 107 H 102 H Respiratory 18 15 18 Rate Blood Pressure 115/76 128/73 125/68 O2 Saturation 100 96 96 12/31/20 14:44 Temperature Heart Rate 97 Respiratory 23 Rate Blood Pressure 112/64 O2 Saturation 94 Oxygen O2 Source Room air - Labs Labs: Microbiology 12/31/20 13:19 Body Fluid Culture - Preliminary Synovial Fluid Laboratory Tests 12/31/20 12/31/20 12/31/20 13:10 13:19 13:19 WBC RBC Hgb Hct MCV MCH MCHC RDW Plt Count MPV Neut # (Auto) Lymph # (Auto) [place] # (Auto) Eos # (Auto) Baso # (Auto) Absolute Nucleated RBC Nucleated RBC % ESR Sodium 135 Potassium 3.8 Chloride 99 L Carbon Dioxide 24 Anion Gap 12.0 BUN 15 Creatinine 1.3 H Estimated GFR (MDRD) 55 L Glucose 123 H Uric Acid 3.9 Calcium 8.7 C-Reactive Protein Fluid Source KNEE Fluid Color YELLOW Fluid Clarity TURBID Fluid WBC 73019 Fluid RBC 4000 Fluid Neutrophils % 88 Fluid Lymphocytes % 2 Fluid Monocytes % 10 Fld Mesothelial Cell % Not Reportable Fluid Crystals NONE SEEN 12/31/20 12/31/20 12/31/20 14:00 14:00 14:00 WBC 10.0 RBC 4.16 L Hgb 13.2 L Hct 40.2 L MCV 96.6 H MCH 31.7 H MCHC 32.8 RDW 13.7 Plt Count 157 MPV 11.1 Neut # (Auto) 7.5 H Lymph # (Auto) 1.2 L [place] # (Auto) 1.2 H Eos # (Auto) 0.0 Baso # (Auto) 0.0 Absolute Nucleated RBC 0.00 Nucleated RBC % 0.0 ESR 61 H Sodium Potassium Chloride Carbon Dioxide Anion Gap BUN Creatinine Estimated GFR (MDRD) Glucose Uric Acid Calcium C-Reactive Protein 16.9 H Fluid Source Fluid Color Fluid Clarity Fluid WBC Fluid RBC Fluid Neutrophils % Fluid Lymphocytes % Fluid Monocytes % Fld Mesothelial Cell % Fluid Crystals Procedures - Arthrocentesis Joint: Knee, Left Preparation: Consent obtained, Sterile prep and drape Anesthesia: Lidocaine 1% Fluid: Sent for cell count, Cloudy, Sent for crystals, Sent for culture, Fluid obtained - cc (40ml) Aftercare: Dressing applied PD MEDICAL DECISION MAKING - ED course ED course: 65-year-old gentleman presents with an acute polyarthropathy with a diagnosis carried forward of "gout". The polyarthropathy is not really consistent with classic gouty arthritis and as such an arthrocentesis of the left knee was done where he had the largest effusion. Initial results from this showed a white count of almost 75,000 and no crystals. At that point the case was discussed by phone with our on-call orthopedist, Dr. Obregon who agrees that the clinical scenario is not consistent with septic arthritis and we agreed that if his Gram stain was negative we would put him on some antibiotics as well as a prednisone taper and he would follow-up with Dr. Obregon over the next few days but would probably need likely follow-up with a manager art to assess for an inflammatory polyarthropathy. After some pain medications and steroids he was able to walk with a walker. He does seem overtly depressed but denies SI or HI and declines to talk to the social science professor about that. Departure - Departure Disposition: 01 Home, Self Care Clinical Impression: Polyarthritis Condition: Good Record reviewed to determine appropriate education?: Yes Follow-Up: Eugene Obregon MD [Provider Admit Priv/Credential] - Prescriptions: predniSONE [Deltasone] 20 mg PO [id number] #21 tab cephALEXin [Keflex] 500 mg PO Q6H #28 cap Oxycodone HCl/Acetaminophen [Percocet 5-325 mg Tablet] 1 - 2 each PO Q6H PRN #14 tablet PRN Reason: pain Comments: You were seen today for multiple joint inflammation. Previously this had been diagnosed as gout, but multiple joints at once really is not consistent with this. As such we performed a work-up and found you to have elevated inflammatory markers, specifically your ESR was 61 and your CRP was 16.9. We did an aspiration of the left knee joint, it has a lot of white cells but no crystals. The lack of crystals is less consistent with gout as it was your serum uric acid being low normal at 3.9. I discussed the case by phone with the orthopedic surgeon listed on this form. He recommended that we start you on some antibiotics out of an abundance of caution while we culture the joint fluid, but it is likely that the joint fluid will be negative given that the presentation is not consistent with a joint infection. To me this seems more likely to be an inflammatory arthritis, the prednisone should help with that and you should follow-up with your manager art, next available appointment. To aid your manager art I have printed out a copy of your labs today and attach them to these instructions. Please return anytime if worsening or anytime if you run a fever.
[2020-12-31 13:57] LABS: BF CLARITY TURBID; BF COLOR YELLOW; BF SOURCE KNEE; CC,BF RBC 4000 /mm^3; CC,BF WBC 74850 /mm^3
[2020-12-31 14:08] LABS: BASOPHILS % (AUTO) 0.2 %; HCT - HEMATOCRIT 40.2 % (42.0-52.0); HGB - HEMOGLOBIN 13.2 g/dL (14.0-18.0); LYMPHOCYTES # (AUTO) 1.2 10^3/uL (1.5-3.5); LYMPHOCYTES % (AUTO) 12.1 %; MEAN CORPUSCULAR HEMOGLOBIN 31.7 pg (27.0-31.0); MEAN CORPUSCULAR HGB CONC 32.8 g/dL (32.0-36.0); MEAN CORPUSCULAR VOLUME 96.6 fL (80.0-94.0); MEAN PLATELET VOLUME 11.1 fL (7.4-11.4); MONOCYTES # (AUTO) 1.2 10^3/uL (0.0-1.0); MONOCYTES % (AUTO) 11.5 %; NEUTROPHILS # (AUTO) 7.5 10^3/uL (1.5-6.6); NEUTROPHILS % (AUTO) 75.6 %; PLT - PLATELET COUNT 157 10^3/uL (130-450); RED BLOOD COUNT 4.16 10^6/uL (4.70-6.10); RED CELL DISTRIBUTION WIDTH 13.7 % (12.0-15.0)
[2020-12-31 14:21] LABS: CALCIUM 8.7 mg/dL (8.5-10.3); CREATININE 1.3 mg/dL (0.6-1.2); POTASSIUM 3.8 mmol/L (3.5-5.0); URIC ACID 3.9 mg/dL (2.6-7.2)
[2020-12-31 14:23] LABS: LYMPHOCYTES %,BODY FLUID 2 %; MONOCYTES %,BODY FLUID 10 %; NEUTROPHILS %, BF 88 %
[2020-12-31 16:32] VITALS: BP 114/75
== END 2020-12-31 16:25 | disposition home or self-care (01) ==
LOC: ED 12:27
DX: M13.0 Polyarthritis, unspecified (principal); M25.462 Effusion, left knee; M25.461 Effusion, right knee; F32.9 Major depressive disorder, single episode, unspecified; I10 Essential (primary) hypertension; E78.00 Pure hypercholesterolemia, unspecified
CPT/HCPCS: 20610; 36415; 80048; 84550; 85025; 85651; 86140; 87070; 87205; 89051; 89060; 96374; 96375; 96376; 99283; 99284; J1170

== ENCOUNTER 2021-11-10 07:23 | Day surgery (SDC) | payer OTHER ==
[2021-11-10] MEDS ORDERED: LACTATED RINGERS 1,000 ML IV ONE (07:30)
--- NOTE | 2021-11-10 07:54 | ANESTHESIA ---
Pre-Anesthesia VS, & Labs - Diagnosis history of colon polyps - Procedure colonoscopy Vital Signs: Temp Pulse Resp BP Pulse Ox 36.4 C L 97 18 145/80 H 95 11/10/21 07:31 11/10/21 07:31 11/10/21 07:31 11/10/21 07:31 11/10/21 07:31 Height: 6 ft Weight (kg): 105.4 kg Body Mass Index: 31.5 BMI Classification: Obese - NPO >8 hours Home Medications and Allergies Home Medications: Ambulatory Orders Colchicine 0.6 mg PO PRN PRN 11/09/21 lisinopriL [Lisinopril] 20 mg PO DAILY 01/20/18 Atorvastatin [Lipitor] 5 mg PO DAILY 12/31/20 allopurinoL [Zyloprim] 300 mg PO DAILY 12/31/20 Colchicine 0.6 mg PO PRN PRN 11/09/21 Allergies/Adverse Reactions: Allergies Allergy/AdvReac Type Severity Reaction Status Date / Time fluoxetine [From Prozac] Allergy Unknown Verified 12/31/20 12:35 simvastatin [From Zocor] Allergy Unknown Verified 12/31/20 12:35 Anes History & Medical History - Anesthetic History Anesthesia Complications: reports: No previous complications, Other-see comment (Patient had recall during previous colonoscopy) - Medical History Cardiovascular: reports: Hypertension Pulmonary: reports: None Gastrointestinal: reports: None Urinary: reports: None Neuro: reports: None Musculoskeletal: reports: Rheumatoid arthritis, Gout Endocrine/Autoimmune: reports: None Blood Disorders: reports: None Skin: reports: None Smoking Status: Never smoker Psychosocial: reports: Alcohol (glass of wine 3-4 times per week) - Surgical History General: reports: Colonoscopy Orthopedic: reports: Shoulder arthroplasty, Arthroscopic surgery, Carpal Tunnel surgery, Spine surgery Exam General: Alert, Oriented x3, Cooperative, No acute distress Dental: WNL Mouth Openin Fingerbreadth Neck Mobility: Reduced (s/p ACDF) Mallampati classification: III Thyromental Distance: 4-6 cm Mental/Cognitive Status: Alert/Oriented X3, Normal for patient Plan Anesthesia Type: General, IV Regional Consent for Procedure(s) Verified and Reviewed: Yes Code Status: Attempt Resuscitation ASA classification: 2-Mild systemic disease Is this case an emergency?: No
[2021-11-10] MEDS ORDERED: PROPOFOL 500 MG/50 ML 500 MG/50 ML VIAL ONE ×2 (07:58→09:18)
[2021-11-10] MEDS ORDERED: PROPOFOL 200 MG/20 ML VIAL IVP ONE ×2 (08:53→09:05)
[2021-11-10] MEDS ORDERED: LACTATED RINGERS 100 ML IV ONE ×2 (09:34)
[2021-11-10 10:05] VITALS: BP 124/78
--- NOTE | 2021-11-10 10:18 | ANESTHESIA POST OP EVALUATION ---
Anesthesia Post Eval - Post Anesthesia Eval Vitals: Last Vital Signs Temp 36.4 C L 11/10/21 10:03 Pulse 76 11/10/21 10:03 Resp 18 11/10/21 10:03 BP 124/78 11/10/21 10:03 Pulse Ox 95 11/10/21 10:03 CV Function Including HR & BP: Stable Pain Control: Satisfactory Nausea & Vomiting: Negative Mental Status: Baseline Respiratory Status: Airway Patent Hydration Status: Satisfactory Anesthesia Complications: None
== END 2021-11-10 07:24 | disposition home or self-care (01) ==
LOC: SDS 07:23
PROVIDERS: ATTEND Surgery
PROC: 0DBL8ZZ Excision of Transverse Colon, Via Natural or Artificial Opening Endoscopic (ICD-10-PCS; 2021-11-10)
PROC: 0DBN8ZZ Excision of Sigmoid Colon, Via Natural or Artificial Opening Endoscopic (ICD-10-PCS; 2021-11-10)
PROC: 0DBM8ZZ Excision of Descending Colon, Via Natural or Artificial Opening Endoscopic (ICD-10-PCS; 2021-11-10)
PROC: 0DBK8ZZ Excision of Ascending Colon, Via Natural or Artificial Opening Endoscopic (ICD-10-PCS; principal; 2021-11-10 08:30)
DX: Z12.11 Encounter for screening for malignant neoplasm of colon (principal); D12.2 Benign neoplasm of ascending colon; D12.3 Benign neoplasm of transverse colon; D12.5 Benign neoplasm of sigmoid colon; D12.4 Benign neoplasm of descending colon; K57.30 Diverticulosis of large intestine without perforation or abscess without bleeding; E66.9 Obesity, unspecified; Z68.31 Body mass index [BMI] 31.0-31.9, adult; G89.4 Chronic pain syndrome; Z92.83 Personal history of failed moderate sedation
CPT/HCPCS: 45380; 45385; J7120

== ENCOUNTER 2022-06-27 08:00 | Outpatient (CLI) | payer OTHER ==
--- NOTE | 2022-06-27 11:41 | XRAY Report ---
PROCEDURE: Shoulder 2 View RT INDICATIONS: R SHOULDER PX TECHNIQUE: 2 views of the shoulder were acquired. COMPARISON: None. FINDINGS: Bones: No fractures or dislocations. No suspicious bony lesions. Moderate degenerative change at th e right shoulder. Visualized ribs appear intact. Soft tissues: No suspicious soft tissue calcifications. IMPRESSION: Moderate right shoulder DJD. Reviewed by: Jasmeet Dhillon MD on 06/27/2022 11:40 AM PDT Approved by: Jasmeet Dhillon MD on 06/27/2022 11:40 AM PDT Station ID: [id number]
== END 2022-06-27 23:59 | disposition home or self-care (01) ==
LOC: DI.N 08:00
PROVIDERS: ATTEND Nurse Practitioner
DX: M25.511 Pain in right shoulder (principal)

== ENCOUNTER 2023-08-21 07:54 | Outpatient (CLI) | payer OTHER ==
[2023-08-21 11:44] LABS: BASOPHILS % (AUTO) 0.6 %; EOSINOPHILS # (AUTO) 0.1 10^3/uL (0.0-0.7); EOSINOPHILS % (AUTO) 2.7 %; HCT - HEMATOCRIT 42.2 % (42.0-52.0); HGB - HEMOGLOBIN 14.3 g/dL (14.0-18.0); LYMPHOCYTES # (AUTO) 1.4 10^3/uL (1.5-3.5); LYMPHOCYTES % (AUTO) 26.3 %; MEAN CORPUSCULAR HEMOGLOBIN 33.6 pg (27.0-31.0); MEAN CORPUSCULAR HGB CONC 33.9 g/dL (32.0-36.0); MEAN CORPUSCULAR VOLUME 99.1 fL (80.0-94.0); MEAN PLATELET VOLUME 11.9 fL (7.4-11.4); MONOCYTES # (AUTO) 0.6 10^3/uL (0.0-1.0); MONOCYTES % (AUTO) 10.6 %; NEUTROPHILS # (AUTO) 3.1 10^3/uL (1.5-6.6); NEUTROPHILS % (AUTO) 59.6 %; PLT - PLATELET COUNT 114 10^3/uL (130-450); RED BLOOD COUNT 4.26 10^6/uL (4.70-6.10); RED CELL DISTRIBUTION WIDTH 11.9 % (12.0-15.0); WHITE BLOOD COUNT 5.2 x10^3/uL (4.8-10.8)
[2023-08-21 11:59] LABS: ALBUMIN 4.2 g/dL (3.2-5.5); ALBUMIN/GLOBULIN RATIO 1.1 (1.0-2.2); ALKALINE PHOSPHATASE 73 IU/L (42-121); ALT ALANINE AMINOTRANSFERASE 36 IU/L (10-60); AST ASPARTATE AMINOTRANSFERASE 50 IU/L (10-42); BILIRUBIN,TOTAL 1.6 mg/dL (0.2-1.0); BUN - BLOOD UREA NITROGEN 10 mg/dL (6-20); CALCIUM 9.8 mg/dL (8.5-10.3); CARBON DIOXIDE - CO2 27 mmol/L (21-32); CHLORIDE 102 mmol/L (101-111); CHOL/HDL RATIO 6.2 (<5.0); CHOLESTEROL 185 mg/dL; GFR - MDRD 74 (>89); GLUCOSE 145 mg/dL (74-104); HDL CHOLESTEROL 30 mg/dL; LDL CHOLESTEROL,CALCULATED 107 mg/dL; LDL/HDL RATIO 3.6 (<3.6); POTASSIUM 4.3 mmol/L (3.5-4.5); SODIUM 137 mmol/L (135-145); TOTAL PROTEIN 8.1 g/dL (6.4-8.9); TRIGLYCERIDES 240 mg/dL (48-352); VLDL CHOLESTEROL 48 mg/dL
== END 2023-08-21 07:55 | disposition home or self-care (01) ==
LOC: LAB.N 07:54
PROVIDERS: ATTEND Physician Assistant
DX: I10 Essential (primary) hypertension (principal); E78.5 Hyperlipidemia, unspecified; Z12.5 Encounter for screening for malignant neoplasm of prostate
CPT/HCPCS: 36415; 80053; 80061; 83721; 84153; 85025

== ENCOUNTER 2023-09-25 07:30 | Outpatient (CLI) | payer OTHER ==
[2023-09-25 12:50] LABS: ESTIMATED AVERAGE GLUCOSE 128 mg/dL (70-100); HEMOGLOBIN A1c% 6.1 % (4.27-6.07)
[2023-09-25 13:12] LABS: CREATININE,URINE 260.2 mg/dL; MICROALBUMIN,URINE 1.3 mg/dL
[2023-09-25 13:19] LABS: ALBUMIN 4.3 g/dL (3.2-5.5); ALBUMIN/GLOBULIN RATIO 1.1 (1.0-2.2); BILIRUBIN,TOTAL 1.4 mg/dL (0.2-1.0); CALCIUM 10.4 mg/dL (8.5-10.3); CREATININE 1.1 mg/dL (0.6-1.3); POTASSIUM 4.5 mmol/L (3.5-4.5); TOTAL PROTEIN 8.1 g/dL (6.4-8.9)
== END 2023-09-25 07:31 | disposition home or self-care (01) ==
LOC: LAB.N 07:30
PROVIDERS: ATTEND Physician Assistant
DX: E11.42 Type 2 diabetes mellitus with diabetic polyneuropathy (principal); R74.8 Abnormal levels of other serum enzymes
CPT/HCPCS: 36415; 80053; 82043; 82570; 83036

== ENCOUNTER 2023-12-08 01:01 | Emergency (ER) | payer OTHER ==
[2023-12-08] MEDS ORDERED: iohexoL-300 100 ML VIAL ONE (01:15)
[2023-12-08 01:22] LABS: BASOPHILS % (AUTO) 0.3 %; EOSINOPHILS # (AUTO) 0.2 10^3/uL (0.0-0.7); EOSINOPHILS % (AUTO) 3.1 %; HCT - HEMATOCRIT 39.5 % (42.0-52.0); HGB - HEMOGLOBIN 13.3 g/dL (14.0-18.0); LYMPHOCYTES % (AUTO) 34.2 %; MEAN CORPUSCULAR HEMOGLOBIN 33.4 pg (27.0-31.0); MEAN CORPUSCULAR HGB CONC 33.7 g/dL (32.0-36.0); MEAN CORPUSCULAR VOLUME 99.2 fL (80.0-94.0); MEAN PLATELET VOLUME 10.5 fL (7.4-11.4); MONOCYTES # (AUTO) 0.7 10^3/uL (0.0-1.0); MONOCYTES % (AUTO) 11.3 %; NEUTROPHILS % (AUTO) 50.9 %; PLT - PLATELET COUNT 99 10^3/uL (130-450); RED BLOOD COUNT 3.98 10^6/uL (4.70-6.10); RED CELL DISTRIBUTION WIDTH 11.9 % (12.0-15.0); WHITE BLOOD COUNT 5.8 x10^3/uL (4.8-10.8)
[2023-12-08 01:35] LABS: ALBUMIN/GLOBULIN RATIO 1.1 (1.0-2.2); BILIRUBIN,TOTAL 0.7 mg/dL (0.2-1.0); CALCIUM 9.6 mg/dL (8.5-10.3); CREATININE 1.3 mg/dL (0.6-1.3); ETOH - ETHANOL 164.8 mg/dL; POTASSIUM 3.7 mmol/L (3.5-4.5); TOTAL PROTEIN 7.5 g/dL (6.4-8.9)
--- NOTE | 2023-12-08 01:37 | ED Physician Documentation ---
PD HPI FOCAL NEURO - Stated complaint Stated Complaint: STROKE - Chief complaint Chief Complaint: Neuro - History obtained from History obtained from: Patient - Additional information Additional information: HPI from patient, patient's spouse (in ED at bedside). Patient arrives by private vehicle. Patient's last "known normal" was 9 PM when he and his went to bed. 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 Denies h/o similar symptoms. PD PAST MEDICAL HISTORY - Past Medical History Past Medical History: Yes Cardiovascular: Hypertension Respiratory: None Neuro: None Endocrine/Autoimmune: None GI: None : None HEENT: None Psych: None Musculoskeletal: Rheumatoid arthritis, Gout Derm: None - Past Surgical History Past Surgical History: Yes General: Colonoscopy Ortho: Shoulder arthroplasty, Arthroscopic surgery, Carpal Tunnel surgery, Spine surgery - Present Medications Home Medications: Ambulatory Orders Medication Instructions Recorded Confirmed lisinopriL [Lisinopril] 20 mg PO DAILY 01/20/18 12/08/23 Atorvastatin [Lipitor] 5 mg PO DAILY 12/31/20 12/08/23 allopurinoL [Zyloprim] 300 mg PO DAILY 12/31/20 12/08/23 Colchicine 0.6 mg PO PRN PRN 11/09/21 12/08/23 Gabapentin [Neurontin] 300 mg PO TID 12/08/23 12/08/23 Metformin HCl [Metformin ER 500 mg PO QPM 12/08/23 12/08/23 Osmotic] Multivitamin 1 each PO DAILY 12/08/23 12/08/23 Omeprazole Magnesium 20 mg PO DAILY 12/08/23 12/08/23 - Allergies Allergies/Adverse Reactions: Allergies Allergy/AdvReac Type Severity Reaction Status Date / Time fluoxetine [From Prozac] Allergy Unknown Verified 12/08/23 01:17 simvastatin [From Zocor] Allergy Unknown Verified 12/08/23 01:17 - Social History Does the pt smoke?: No Smoking Status: Never smoker Does the pt drink ETOH?: Yes Does the pt have substance abuse?: No - Immunizations Immunizations are current?: Yes - POLST Patient has POLST: No PD ED PE NORMAL - Vitals Vital signs reviewed: Yes - General General: Alert and oriented X 3, No acute distress, Well developed/nourished, Other (slurred speech; some difficulty in word-finding) - HEENT HEENT: PERRL, EOMI - Neck Neck: Supple, no meningeal sign - Cardiac Cardiac: RRR, No murmur, No gallop, No rub - Respiratory Respiratory: No respiratory distress, Clear bilaterally - Abdomen Abdomen: Soft, Non tender - Derm Derm: Normal color, Warm and dry - Extremities Extremities: No deformity - Neuro Neuro: Alert and oriented X 3, 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, No motor deficit, No sensory deficit Eye Opening: Spontaneous Motor: Obeys Commands Verbal: Oriented GCS Score: 15 NIHSS - Level of Consciousness Level of consciousness: (0) Alert, Keenly responsive LOC Questions: (0) Answers both Q's correct LOC Commands: (0) Performs both correctly - Gaze Best Gaze: (0) Normal - Visual Visual: (0) No loss - Facial Palsy Facial Palsy: (0) Normal, symmetrical movement - Motor Arms (both separate) Motor Arm (right): (0) No drift Motor Arm (left): (0) No drift - Motor Legs (both separate) Motor Leg (right): (0) No drift Motor Leg (left): (0) No drift - Limb Ataxia Limb Ataxia: (0) Absent - Sensory Sensory: (0) Normal - Best Language Best Language: (2) Severe aphasia - Dysarthria Dysarthria: (0) Normal - Extinction and Inattention (formally neg Extinction and inattention: (0) No abnormality - Total Score/Results Total Score/Result: 2 Results - Vitals Vitals: Oxygen O2 Source Room air - EKG (time done) No standard instances EKG releavant findings:: EKG personally interpreted by author of this note. Relevant findings are: Rate: Rate (enter#) (100) Rhythm: NSR [place]: LAD Intervals: Normal VA QRS: LVH Ischemia: Normal ST segments, Q waves (III, aVF) - Labs Labs: Laboratory Tests 12/08/23 12/08/23 12/08/23 01:13 01:16 01:16 WBC 5.8 RBC 3.98 L Hgb 13.3 L Hct 39.5 L MCV 99.2 H MCH 33.4 H MCHC 33.7 RDW 11.9 L Plt Count 99 L MPV 10.5 Neut # (Auto) 3.0 Lymph # (Auto) 2.0 [place] # (Auto) 0.7 Eos # (Auto) 0.2 Baso # (Auto) 0.0 Absolute Nucleated RBC 0.00 Nucleated RBC % 0.0 PT 14.2 H INR 1.3 H APTT 34.9 H Sodium Potassium Chloride Carbon Dioxide Anion Gap BUN Creatinine Estimated GFR (MDRD) Glucose POC Whole Bld Glucose 141 H Calcium Total Bilirubin AST ALT Alkaline Phosphatase Total Protein Albumin Globulin Albumin/Globulin Ratio Lipase Urine Color Urine Clarity Urine pH Ur Specific [place] Urine Protein Urine Glucose (UA) Urine Ketones Urine Occult Blood Urine Nitrite Urine Bilirubin Urine Urobilinogen Ur Leukocyte Esterase Ur Microscopic Review Urine Culture Comments Urine Opiates Screen Ur Buprenorphine Scrn Ur Oxycodone Screen Urine Methadone Screen Ur Barbiturates Screen Ur Tricyclics Screen Ur Phencyclidine Scrn Ur Amphetamine Screen U Methamphetamines Scrn U Benzodiazepines Scrn Urine Cocaine Screen U Cannabinoids Screen Ur Drug Screen Comment Ethyl Alcohol 12/08/23 12/08/23 01:16 03:07 WBC RBC Hgb Hct MCV MCH MCHC RDW Plt Count MPV Neut # (Auto) Lymph # (Auto) [place] # (Auto) Eos # (Auto) Baso # (Auto) Absolute Nucleated RBC Nucleated RBC % PT INR APTT Sodium 137 Potassium 3.7 Chloride 102 Carbon Dioxide 24 Anion Gap 11.0 BUN 12 Creatinine 1.3 Estimated GFR (MDRD) 55 L Glucose 136 H POC Whole Bld Glucose Calcium 9.6 Total Bilirubin 0.7 AST 53 H ALT 36 Alkaline Phosphatase 70 Total Protein 7.5 Albumin 4.0 Globulin 3.5 Albumin/Globulin Ratio 1.1 Lipase 73 Urine Color YELLOW Urine Clarity CLEAR Urine pH 6.0 Ur Specific [place] <=1.005 Urine Protein NEGATIVE Urine Glucose (UA) NEGATIVE Urine Ketones NEGATIVE Urine Occult Blood NEGATIVE Urine Nitrite NEGATIVE Urine Bilirubin NEGATIVE Urine Urobilinogen 0.2 (NORMAL) Ur Leukocyte Esterase NEGATIVE Ur Microscopic Review NOT INDICATED Urine Culture Comments NOT INDICATED Urine Opiates Screen NEGATIVE Ur Buprenorphine Scrn NEGATIVE Ur Oxycodone Screen NEGATIVE Urine Methadone Screen NEGATIVE Ur Barbiturates Screen NEGATIVE Ur Tricyclics Screen NEGATIVE Ur Phencyclidine Scrn NEGATIVE Ur Amphetamine Screen NEGATIVE U Methamphetamines Scrn NEGATIVE U Benzodiazepines Scrn NEGATIVE Urine Cocaine Screen NEGATIVE U Cannabinoids Screen NEGATIVE Ur Drug Screen Comment CUTOFF CONC BELOW: Ethyl Alcohol 164.8 - Rads (name of study) CXR Relevant Findings:: Prelim report reviewed, See rad report CTA head/neck Relevant Findings:: Prelim report reviewed, See rad report PD Medical Decision Making - ED course Complexity details: reviewed results, re-evaluated patient, considered differential, d/w patient ED course: Expressive aphasia that resolves during ED stay; shortly after returning form CT, he is AAOx3 and is rapidly and articulately conversant without hesitation or slurred speech. His presenting symptoms have resolved by the time of test results. Unremarkable blood tests including CBC, ER abdominal panel, UA and UDS. No findings on CTH/CTA head/neck that suggest acute neurologic event (such as CVA, ICH). Given presenting symptoms and resolution during ED stay, TIA is highly suspected. Telestroke consult obtained; at the time of this consult, patient is already outside of three-hour window regarding onset of symptoms and thus not a thrombolytic candidate. There is no evidence of LVO on CTA studies. Given resolution of symptoms, further testing is appropriate in outpatient setting (such as MRI/MRA brain). Results d/w patient, return precautions reviewed. Departure - Departure Disposition: 01 Home, Self Care Clinical Impression: Transient ischemic attack (TIA) Condition: Good Instructions: ED Transient Ischemic Attack Follow-Up: Mariam Gonzales PA-C [Primary Care Provider] - Comments: There were no concerning findings on tonight's blood tests. The CAT scans show some calcification/plaque buildup in both the right and left carotid arteries, but not to an extent that would explain your symptoms nor indicate any specific treatment. The chest x-ray and the CAT scan of your neck (which included some imaging into the chest) show a left-sided lung abnormality which is a nonspecific and incidental finding. You have indicated a history of asbestosis which could possibly explain this finding, but when you follow up with your primary care provider regarding tonight's symptoms, be sure to mention that there was an abnormal finding in the left lung; further testing might be indicated (such as CT scan of your chest). While there is no finding on tonight's test that would explain your symptoms, as we discussed, tonight's events are highly consistent with TIA (transient ischemic attack; information on this diagnosis are provided within these discharge instructions). Follow-up with your primary care provider, next available appointment, for reevaluation. Further testing might be indicated even if your symptoms do not recur. Discharge Date/Time: 12/08/23 04:25
[2023-12-08 01:46] LABS: PARTIAL THROMBOPLASTIN TIME 34.9 secs (24.9-33.3)
[2023-12-08 01:51] LABS: INR 1.3 (0.8-1.2); PT - PROTHROMBIN TIME 14.2 secs (9.9-12.6)
[2023-12-08] MEDS: iohexoL-300 100 ML VIAL IVP ONE (02:10)
[2023-12-08 03:20] LABS: BILIRUBIN,URINE NEGATIVE (NEGATIVE); GLUCOSE, URINE (UA) NEGATIVE (NEGATIVE); KETONES,URINE (UA) NEGATIVE (NEGATIVE); LEUKOCYTE ESTERASE, URINE NEGATIVE (NEGATIVE); NITRITE,URINE NEGATIVE (NEGATIVE); OCCULT BLOOD,URINE NEGATIVE (NEGATIVE); PROTEIN,URINE NEGATIVE (NEGATIVE); UROBILINOGEN,URINE 0.2 (NORMAL) E.U./dL (NORMAL)
[2023-12-08 03:29] LABS: CLARITY,URINE CLEAR (CLEAR)
[2023-12-08 03:31] LABS: AMPHETAMINE SCREEN,URINE NEGATIVE (NEGATIVE); BARBITURATE SCREEN,UR NEGATIVE (NEGATIVE); BENZODIAZEPINES SCREEN, URINE NEGATIVE (NEGATIVE); BUPRENORPHINE SCREEN, URINE NEGATIVE (NEGATIVE); COCAINE SCREEN URINE NEGATIVE (NEGATIVE); METHADONE SCREEN, URINE NEGATIVE (NEGATIVE); METHAMPHETAMINES SCREEN, URINE NEGATIVE (NEGATIVE); OPIATE SCREEN, URINE NEGATIVE (NEGATIVE); OXYCODONE SCREEN, URINE NEGATIVE (NEGATIVE); THC CANNABINOID SCREEN, URINE NEGATIVE (NEGATIVE); TRICYCLIC ANTIDEPRESSANT,URINE NEGATIVE (NEGATIVE)
[2023-12-08 04:19] VITALS: BP 165/90; O2SAT 95
--- NOTE | 2023-12-08 08:40 | CT Report ---
PROCEDURE: Head W/O Stroke Protocol INDICATIONS: expressive aphasia TECHNIQUE: Noncontrast 4.5 mm thick angled axial sections acquired from the foramen magnum to the vertex, with c oronal reformats. For radiation dose reduction, the following was used: automated exposure control, adjustment of mA and/or kV according to patient size. COMPARISON: None. FINDINGS: Image quality: Excellent. CSF spaces: Basal cisterns are patent. No extra-axial fluid collections. Ventricles are normal in size and shape. Brain: Old lacunar infarct in left basal ganglia is seen. No midline shift. No intracranial masses o r hemorrhage. [place]-white matter interface is normal. Skull and face: Calvarium and visualized facial bones are intact, without suspicious lesions. Sinuses: Visualized sinuses and mastoids are clear. IMPRESSION: No CT evidence of acute intracranial abnormalities. Old lacunar infarct in left basal ganglia. Findings are concordant with preliminary interpretation provided by [facility]. This study fulfills neurological imaging criteria for inclusion or exclusion of acute stroke therapie s based on available published neurological imaging guidelines. Reviewed by: Kevin Brown MD on 12/08/2023 8:39 AM PST Approved by: Kevin Brown MD on 12/08/2023 8:39 AM PST Station ID: [id number]
--- NOTE | 2023-12-08 09:16 | XRAY Report ---
PROCEDURE: Chest 1V INDICATIONS: stroke-like symptoms TECHNIQUE: One view of the chest was acquired. COMPARISON: None. FINDINGS: Surgical changes and devices: None. Lungs and pleura: No pleural effusions or pneumothorax. Ill-defined opacity in left upper lung field is seen extending to left hilar region. Mediastinum: Mediastinal contours appear normal. Heart size is enlarged. Bones and chest wall: No suspicious bony lesions. Overlying soft tissues appear unremarkable. IMPRESSION: Small infiltrate versus atelectasis in left upper lung field. No pleural effusion or pneumothorax. Findings are concordant with preliminary interpretation provided by [facility]. Reviewed by: Kevin Brown MD on 12/08/2023 9:14 AM PST Approved by: Kevin Brown MD on 12/08/2023 9:14 AM PST Station ID: [id number]
--- NOTE | 2023-12-08 10:23 | CT Report ---
PROCEDURE: CT angiogram head and neck with contrast INDICATIONS: expressive aphasia TECHNIQUE: Helical axial CT of the head and neck was obtained during the arterial phase of a intrave nous contrast injection utilizing an angiographic protocol. Multiplanar traditional and MIP reformat s were also obtained. Dose reduction techniques included either automated exposure control or adjustm ent of exposure parameters. COMPARISON: None. FINDINGS: Cerebral CT Angiogram: Internal carotid arteries: Moderate calcified atherosclerotic plaque involving the base of both inter nal carotid arteries occlusion. No aneurysm. 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 Middle cerebral arteries: Unremarkable. No significant stenosis. No occlusion. No aneurysm. Posterior cerebral arteries: Unremarkable. No significant stenosis. No occlusion. No aneurysm. Basilar artery: Unremarkable. No significant stenosis. No occlusion. No aneurysm. Vertebral arteries: Unremarkable as visualized. Dural venous sinuses: Unremarkable given phase of enhancement. Other: Arterial phase appearance of the brain parenchyma is unremarkable. Neck CT Angiogram: Internal carotid arteries: Calcified atherosclerotic plaque in both proximal internal carotid arterie s noted. No stenosis on the right, and 50% stenosis on the left utilizing NASCET criteria Common carotid arteries: Unremarkable. No significant stenosis. No dissection or occlusion. External carotid arteries: Unremarkable. No occlusion. Vertebral arteries: Unremarkable. No significant stenosis. No dissection or occlusion. Aortic Arch and Mediastinum: Partially visualized aortic arch unremarkable without evidence of aneury sm. Origins of the great vessels unremarkable. Other: Arterial phase soft tissues of the neck are unremarkable. Degenerative disc disease and arthro donavon in the cervical spine IMPRESSION: Calcified atherosclerotic plaque results in 50% stenosis in the proximal left ICA Note: This final report is concordant with the preliminary after-hours interpretation provided by [facility] Reviewed by: Tim Quiñonez MD on 12/08/2023 9:22 AM [facility] Approved by: Tim Quiñonez MD on 12/08/2023 9:22 AM [facility] Station ID: [id number]
== END 2023-12-08 04:25 | disposition home or self-care (01) ==
LOC: ED 01:01
DX: G45.9 Transient cerebral ischemic attack, unspecified (principal); R91.8 Other nonspecific abnormal finding of lung field
CPT/HCPCS: 36415; 70450; 70496; 70498; 71045; 80053; 80306; 80320; 81003; 83690; 85025; 85610; 85730; 93005; 99284; 99285; Q9967; 81001; 87086

== ENCOUNTER 2023-12-16 17:00 | Outpatient (CLI) | payer OTHER ==
--- NOTE | 2023-12-17 19:49 | CT Report ---
PROCEDURE: Chest WO INDICATIONS: EZEQUIEL CONSOLIDATION TECHNIQUE: A CT scan of the chest was performed. Intravenous contrast media was not administered. Images were re corded and evaluated at appropriate window settings. Reformats: axial MIP of the chest, coronal and s agittal. For radiation dose reduction, the following was used: automated exposure control, adjustment of mA and/or kV according to patient size. COMPARISON: Chest radiograph on December 08, 2023. FINDINGS: Image quality: Diagnostic. Chest wall and lower neck: No thyroid nodule which requires sonographic follow up. No axillary or sup raclavicular adenopathy by size. Lungs and pleura: No consolidation. No pleural effusions. No pneumothorax. Right upper lobe solid pu lmonary nodule measuring 5 mm (4/20, 6/84). Small cluster of centrilobular nodules in the right upper lobe (10/24, 4/40). Left upper lobe linear atelectasis/scar. Central airways are patent with no obst ructing lesion. Dependent atelectasis. Mediastinum: Heart size is normal. No pericardial effusion. No large vessel abnormality. No mediastin al adenopathy by size criteria. Multiple mediastinal and bilateral hilar calcified granulomas sugges tive of prior granulomatous infection. Moderate to severe coronary vessel calcifications. Bones: No aggressive osseous abnormality. No acute fractures. [id number] multilevel degenerativ e changes of the spine. Upper Abdomen: Limited noncontrast images demonstrate mild fat stranding in the right upper quadrant adjacent to the second portion of the duodenum which is only partially visualized (2/115). IMPRESSION: 1.Left upper lobe linear atelectasis/scar. Central airways are patent with no lesion. 2.Small cluster of centrilobular nodules in the right upper lobe suggestive of bronchiolitis of infec tious or inflammatory etiology. An optional CT chest in 3 months can be performed to evaluate for imp rovement. 3.Right upper lobe solid pulmonary nodule measuring 5 mm. Fleischner guidelines: If patient is low ri sk, no additional follow-up needed. If patient is high risk, consider repeat CT chest in 12 months. 4.Limited noncontrast images of the upper abdomen demonstrate mild fat stranding in the right upper q uadrant adjacent to the second portion of the duodenum which is only partially visualized. Recommend a contrast enhanced CT of the abdomen and pelvis for further evaluation. 5.Moderate to severe coronary vessel calcification. Reviewed by: Sylvain Starks MD on 12/17/2023 7:48 PM PST Approved by: Sylvain Starks MD on 12/17/2023 7:48 PM PST Station ID: [id number]
== END 2023-12-16 17:01 | disposition home or self-care (01) ==
LOC: DI 17:00
PROVIDERS: ATTEND Physician Assistant
DX: J18.1 Lobar pneumonia, unspecified organism (principal); R91.1 Solitary pulmonary nodule; I25.10 Atherosclerotic heart disease of native coronary artery without angina pectoris

== ENCOUNTER 2023-12-16 17:03 | Outpatient (CLI) | payer OTHER ==
--- NOTE | 2023-12-16 18:07 | MRI Report ---
PROCEDURE: Angio Head WO INDICATIONS: TIA TECHNIQUE: Noncontrast axial 3-D [id number] MR angiogram, with 3-dimensional maximum intensity projection (M IP) reformats of the internal carotid arteries and posterior circulation then performed. COMPARISON: Correlation is made with prior CT, 12/08/2023. FINDINGS: Image quality: Diagnostic. Anterior circulation: Intracranial internal carotid arteries demonstrate normal size and intralumina l flow signal. The flow within the paired anterior cerebral arteries is normal and symmetric. The f low within the middle cerebral arteries is normal and symmetric. The anterior communicating artery i s seen. No stenoses, occlusions, or aneurysms. Posterior circulation: Visualized portions of the vertebral arteries demonstrate normal caliber, and join to form a normal appearing basilar artery. The flow within the posterior cerebral arteries is normal and symmetric. No stenoses, occlusions, or aneurysms. Focal volume loss can be seen involving both medial inferior frontal lobes and inferiorly. IMPRESSION: No significant intracranial arterial abnormality is seen. Note is made of focal volume loss involving both inferomedial frontal lobes anteriorly. Please correl ate with known patient history. Reviewed by: Beny Brown MD on 12/16/2023 5:05 PM [facility] Approved by: Beny Brown MD on 12/16/2023 5:05 PM [facility] Station ID: [id number]
== END 2023-12-16 17:04 | disposition home or self-care (01) ==
LOC: DI 17:03
PROVIDERS: ATTEND Physician Assistant
DX: G45.9 Transient cerebral ischemic attack, unspecified (principal); J18.1 Lobar pneumonia, unspecified organism; R91.1 Solitary pulmonary nodule; I25.10 Atherosclerotic heart disease of native coronary artery without angina pectoris

== ENCOUNTER 2023-12-19 10:26 | Outpatient (CLI) | payer OTHER | END 2023-12-19 10:27 | disposition home or self-care (01) | LOC: DI 10:26 | PROVIDERS: ATTEND Physician Assistant | DX: G45.9 Transient cerebral ischemic attack, unspecified (principal); I34.0 Nonrheumatic mitral (valve) insufficiency; I49.3 Ventricular premature depolarization; I51.7 Cardiomegaly | CPT/HCPCS: 93307 ==

== ENCOUNTER 2024-01-31 08:07 | Outpatient (CLI) | payer OTHER ==
[2024-01-31 08:34] LABS: CREATININE 0.9 mg/dL (0.6-1.3)
[2024-01-31] MEDS: DIATRIZOATE MEGLU/DIATRIZO SOD 30 ML BOTTLE PO ONE (09:37)
[2024-01-31] MEDS: iohexoL-300 100 ML VIAL IVP ONE (09:37)
--- NOTE | 2024-01-31 10:57 | CT Report ---
PROCEDURE: Abdomen/Pelvis W INDICATIONS: ABN IMAGAING OF ABD CONTRAST: 100ml omni 300 TECHNIQUE: After the administration of intravenous contrast, a CT scan of the abdomen and pelvis was performed. Images were recorded and evaluated at appropriate window settings. Reformats: coronal and sagittal. F or radiation dose reduction, the following was used: automated exposure control, adjustment of mA and /or kV according to patient size. COMPARISON: CT abdomen and pelvis dated November 11, 2018. FINDINGS: Image quality: Diagnostic. Lower chest: Cardiomegaly. Marked three-vessel coronary calcifications. Calcified nonenlarged mediast inal lymph nodes. Partially visualized calcification of the aortic valve. Liver: No solid mass. Diffuse hypoattenuation of the liver. Gallbladder and biliary tree: Decompressed with no stones or sludge. No intrahepatic or extra hepatic biliary ductal dilatation. No definite choledocholithiasis. There are a few probable prominent perip ortal lymph nodes with hyperdense calcifications which are new compared to prior (for example , 4 8, 50, 55). Spleen: No splenomegaly. Pancreas: No pancreatic ductal dilation. Adrenals: No adrenal nodule. Kidneys and ureters: No hydronephrosis. No renal cystic lesion which requires follow up. No solid mas s. Stomach, bowel and peritoneum: No hiatal hernia. Stomach appears grossly normal. Small and large rosalina l is normal in caliber, without obstruction. Normal appendix (). Diverticulosis, without divertic ulitis. Lymph nodes: No central or retroperitoneal adenopathy. Vessels: No infrarenal aortic aneurysm. Mild atelectatic aspiration of the abdominal aorta and branch vessels. PELVIS Reproductive organs: Unremarkable. Bladder: No abnormal wall thickening, accounting for underdistention. Pelvic lymph nodes: No pelvic adenopathy by size criteria. Bones: No aggressive osseous abnormality. No acute fractures. Mild multilevel degenerative changes of the spine. Posterior osteophyte arising from the L5 vertebra with moderate ventral effacement of the central canal (6/109), stable. Other: No significant ventral or inguinal hernia. IMPRESSION: 1.Gallbladder is decompressed with no stones or sludge. No biliary ductal dilatation. No definite cho ledocholithiasis. 2.A few probable prominent periportal lymph nodes with hyperdense calcifications which are new compar ed to prior dated November 11, 2018. Findings are favored to represent sequela of granulomatous infect ion. If there is clinical suspicion for a biliary pathology, an MRCP can be performed for further robyn luation. 3.Cardiomegaly with marked three-vessel coronary calcification 4.Stable posterior osteophyte arising from the L5 with moderate ventral effacement of the central can al. Reviewed by: Sylvain Starks MD on 01/31/2024 10:55 AM PDT Approved by: Sylvain Starks MD on 01/31/2024 10:55 AM PDT Station ID: [id number]
== END 2024-01-31 08:08 | disposition home or self-care (01) ==
LOC: LAB 08:07
PROVIDERS: ATTEND Physician Assistant
DX: R93.5 Abnormal findings on diagnostic imaging of other abdominal regions, including retroperitoneum (principal); I89.8 Other specified noninfective disorders of lymphatic vessels and lymph nodes; I51.7 Cardiomegaly; I25.10 Atherosclerotic heart disease of native coronary artery without angina pectoris; M25.78 Osteophyte, vertebrae
CPT/HCPCS: 36415; 74177; 82565; Q9967

== ENCOUNTER 2024-05-22 08:03 | Outpatient (CLI) | payer OTHER ==
--- NOTE | 2024-05-23 19:30 | XRAY Report ---
PROCEDURE: Knee 3V LT INDICATIONS: KNEE PX,LEFT TECHNIQUE: 3 views of the knee was obtained. COMPARISON: None FINDINGS: Bones: No fractures or dislocations. No suspicious bony lesions. Soft tissues: Moderate knee joint effusion. No suspicious soft tissue calcifications or masses. Ath erosclerotic vascular calcification IMPRESSION: Moderate joint effusion without fracture Reviewed by: Tim Quiñonez MD on 05/23/2024 6:29 PM [facility] Approved by: Tim Quiñonez MD on 05/23/2024 6:29 PM [facility] Station ID: [id number]
== END 2024-05-22 08:04 | disposition home or self-care (01) ==
LOC: DI 08:03
PROVIDERS: ATTEND Physician Assistant
DX: M25.562 Pain in left knee (principal); M25.462 Effusion, left knee

== ENCOUNTER 2024-06-09 07:33 | Outpatient (CLI) | payer OTHER ==
--- NOTE | 2024-06-09 14:27 | MRI Report ---
PROCEDURE: Knee LT WO INDICATIONS: L KNEE PAIN TECHNIQUE: Noncontrast sagittal PD fast spin echo and T2 fast spin echo with fat saturation, sagittal 3-D gradie nt sequence with fat saturation; coronal T1 spin echo and PD fast spin echo with fat saturation, and axial PD fast spin echo with fat saturation through the knee. COMPARISON: 04/22/2024 left knee radiograph. FINDINGS: Image quality: Excellent. Menisci: Vertical tear involving posterior horn of medial meniscus extending to both superior and inf erior articulating surfaces. There is also oblique tear involving posterior horn of medial meniscus e xtending to inferior articulating surfaces. Vertical tear is also noted in anterior horn/body junctio n of lateral meniscus extending to both superior and inferior articulating surfaces. The meniscal mignon t ligaments are intact. Cruciate ligaments: The anterior cruciate ligament is mildly thickened. The posterior cruciate ligam ent is intact. Medial structures: The medial collateral ligament appears thickened with surrounding soft tissue job ma. Visualized portions of the pes anserinus tendons appear normal. No abnormal bursal fluid. Lateral structures: The lateral collateral ligament, long and short heads of the biceps femoris tend on appear intact. The popliteus tendon appears normal. Iliotibial band appears normal. Anterior structures: Distal quadriceps tendinosis at its superior patellar insertion is seen. The pat farhat tendon is intact. Patellar alignment is normal. No femoral trochlear dysplasia or ventral troch lear prominence. No edema in the infrapatellar fat pad. Bones and cartilage: There is mild to moderate tricompartmental osteoarthritis and chondromalacia mos t notably in medial femoral tibial compartment and medial portion of patellofemoral compartment. No m arrow edema. No fracture or dislocation. Joint space: There is small knee joint fluid. No Weiss's cyst. Normal appearing synovial plicae ar e incidentally noted. IMPRESSION: 1. Vertical tear involving posterior horn of medial meniscus extending to both superior and inferior articulating surfaces. Oblique tear involving posterior horn of medial meniscus extending to inferior articulating surface. Vertical tear involving anterior horn/body junction of lateral meniscus extend ing to both superior and inferior articulating surfaces. 2. 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 No ACL rupture. The PC L is intact. 3. Low to moderate grade MCL sprain/partial thickness tear. 4. Distal quadriceps tendinosis. 5. Mild to moderate tricompartmental osteoarthritis and chondromalacia more notably in medial femoral tibial compartment and medial portion of patellofemoral compartment. No fracture or dislocation. Sma ll joint effusion, no loose bodies. Reviewed by: Kevin Agarwal MD on 06/09/2024 2:26 PM PDT Approved by: Kevin Agarwal MD on 06/09/2024 2:26 PM PDT Station ID: [id number]
== END 2024-06-09 07:34 | disposition home or self-care (01) ==
LOC: DI 07:33
PROVIDERS: ATTEND Physician Assistant
DX: S83.242A Other tear of medial meniscus, current injury, left knee, initial encounter (principal); S83.282A Other tear of lateral meniscus, current injury, left knee, initial encounter; M17.12 Unilateral primary osteoarthritis, left knee; M23.8X2 Other internal derangements of left knee; S83.412A Sprain of medial collateral ligament of left knee, initial encounter; M25.462 Effusion, left knee; M94.262 Chondromalacia, left knee